=== PATIENT | male | born 1960 | race Caucasian/White ===

== ENCOUNTER 2017-05-14 10:43 | Outpatient (CLI) | payer OTHER | END 2017-05-14 10:44 | disposition home or self-care (01) | LOC: CTENTCT 10:43 | PROVIDERS: ATTEND Otolaryngology Plastic Surgery within the Head & Neck | DX: J32.8 Other chronic sinusitis (principal) | CPT/HCPCS: 70486 ==

== ENCOUNTER 2017-05-22 08:03 | Day surgery (SDC) | payer OTHER ==
[2017-05-21 11:42] VITALS: BMI 30.9
[2017-05-22] MEDS ORDERED: Oxymetazoline HCl 0.05% ( 15 ML ) ONE ×2 (08:24→09:40)
[2017-05-22] MEDS ORDERED: Midazolam HCl 2 mg/2 ml Vial ONE (09:19)
[2017-05-22] MEDS ORDERED: Bacitracin Zinc Ointment 30 gm TUBE ONE (09:40)
[2017-05-22] MEDS ORDERED: Lidocaine 1% w/Epinephrine 1:200K 30 ML VIAL ONE (09:40)
[2017-05-22] MEDS ORDERED: Ondansetron HCl/PF 4 MG/2 ML Vial ONE ×3 (09:42→14:43)
[2017-05-22] MEDS ORDERED: Fentanyl 100 MCG/2 ML VIAL ONE (09:42)
[2017-05-22] MEDS ORDERED: Hydrocodone-Acetamin 15 ML UDCUP ONE (12:58)
[2017-05-22] MEDS ORDERED: Propofol 200 MG/20 ML VIAL ONE (14:43)
[2017-05-22] MEDS ORDERED: Metoclopramide HCl 10 MG/2 ML VIAL ONE (14:43)
[2017-05-22] MEDS ORDERED: Lidocaine 1% PF 5 ML VIAL ONE (14:43)
[2017-05-22] MEDS ORDERED: Succinylcholine Chloride 20 MG/ML 10 ml SYRINGE FS ONE (14:43)
--- NOTE | 2017-05-22 20:49 | OP ---
DATE OF PROCEDURE: 05/22/2017 PREOPERATIVE DIAGNOSES: 1. Chronic rhinosinusitis. 2. Bilateral inferior turbinate hypertrophy. 3. Nasal septal deviation. 4. Nasal obstruction. POSTOPERATIVE DIAGNOSES: 1. Chronic rhinosinusitis. 2. Bilateral inferior turbinate hypertrophy. 3. Nasal septal deviation. 4. Nasal obstruction. PROCEDURES: 1. Bilateral endoscopic sinus surgery, total ethmoidectomies. 2. Bilateral endoscopic sinus surgery, maxillary antrostomies. 3. Bilateral endoscopic sinus surgery, frontal sinusotomies. 4. Nasal septoplasty. 5. Bilateral inferior turbinate submucosal resection. 6. Outfracture of inferior turbinate. SURGEON: Dr. Eloy Lorenzana. ESTIMATED BLOOD LOSS: 0 mL COMPLICATIONS: None. ANESTHESIA: GETA. PROCEDURE IN DETAIL: Patient was taken to the operating room and placed supine on the table. Genera l endotracheal anesthesia was obtained by the Anesthesia staff. Tube was secured in the left lower l ip. Patient was then placed in the beach chair position, and Afrin pledgets were placed in the nasal cavity. Injections of 1% lidocaine with 1:100,000 epinephrine were made into the nasal septum as we ll as the inferior turbinates. Patient was then prepped and draped in standard surgical fashion for nasal surgery. Following this, the Afrin pledgets were removed. A Brodie incision was made on the left nasal septum. Submucoperichondrial dissection was performed. The deviated portions of the sept um included portions of the cartilage and the bony septum. These isolated areas were removed using t hree cutting rongeurs. There was noted to be a large dorsal and caudal strut, left intact for suppor t of the nose. The mucoperichondrial flaps were then reapproximated using a 4-0 gut stitch. Any stra ight pieces of cartilage were crushed prior to this and placed between the mucoperichondrial flaps. Following this, the inferior turbinates were then punctured with a submucosal coblation wand, and sub mucosal coblations were performed of multiple areas of the inferior portion of the anterior inferior turbinate. Please note that the submucosal microdebrider was used to submucosally resect the anterior and inferi or portions of the inferior turbinates bilaterally. Following this, a [place] elevator was used to lat erally outfracture the inferior turbinates. Following this, the middle turbinates were visualized an d were immediately displaced using a [place] elevator. The uncinate process was then identified and wa s anteriorly fractured using the ball-ended probe bilaterally. Following this, the microdebrider was used to remove the uncinate process and upbiting [place] were used as well to remove the uncinate process bilaterally. Following this, the ball ended probe was then used to gently probe and palpate the natural maxillary ostia. Following this, the straight [place] forceps and microdebrider were u sed to widen the maxillary ostia bilaterally. Following this, the ethmoidal bulla was identified carl[place] aterally and was punctured on its medial and inferior aspect and was removed using the microdebrider and the upbiting [place] forceps. Following this, the grand lamella was identified bilaterally and was punctured into the posterior ethmoidal cells. Working from posterior to anterior, the ethmoidal cells were opened in a mucosal-sparing technique. Following this, a 45-degree scope along with 40-d egree curved microdebrider were used to further visualize the frontal recess and frontal sinus ostia bilaterally. The curved microdebrider and upbiting Blakesley forceps were used to widen the frontal sinus ostia bilaterally. Following this, the nasal cavity was irrigated. MeroPacks were placed with in the middle meatus. Duron splints were placed and secured. The patient tolerated the procedure we ll.
== END 2017-05-22 13:36 | disposition home or self-care (01) ==
LOC: SDC 08:03
PROVIDERS: ATTEND Otolaryngology Plastic Surgery within the Head & Neck
PROC: 09TU8ZZ Resection of Right Ethmoid Sinus, Via Natural or Artificial Opening Endoscopic (ICD-10-PCS; principal; 2017-05-22)
PROC: 099S8ZZ Drainage of Right Frontal Sinus, Via Natural or Artificial Opening Endoscopic (ICD-10-PCS; principal; 2017-05-22)
PROC: 099Q8ZZ Drainage of Right Maxillary Sinus, Via Natural or Artificial Opening Endoscopic (ICD-10-PCS; principal; 2017-05-22)
PROC: 099R8ZZ Drainage of Left Maxillary Sinus, Via Natural or Artificial Opening Endoscopic (ICD-10-PCS; principal; 2017-05-22)
PROC: 09TV8ZZ Resection of Left Ethmoid Sinus, Via Natural or Artificial Opening Endoscopic (ICD-10-PCS; principal; 2017-05-22)
PROC: 09TL0ZZ Resection of Nasal Turbinate, Open Approach (ICD-10-PCS; principal; 2017-05-22)
PROC: 099T8ZZ Drainage of Left Frontal Sinus, Via Natural or Artificial Opening Endoscopic (ICD-10-PCS; principal; 2017-05-22)
DX: J32.8 Other chronic sinusitis (principal); J34.3 Hypertrophy of nasal turbinates; J34.2 Deviated nasal septum; J30.1 Allergic rhinitis due to pollen; J30.81 Allergic rhinitis due to animal (cat) (dog) hair and dander; J30.89 Other allergic rhinitis; Z79.899 Other long term (current) drug therapy
CPT/HCPCS: 36416; 93005; 93010; 96374; J2001; J2250; J2405; J2704; J2765; J3010